=== PATIENT | female | born 1980 ===

== ENCOUNTER → 2018-07-30 | Outpatient (CLI) | payer MEDICAID, OTHER ==
--- NOTE | 2018-08-02 23:54 | HOLTMON ---
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 Normal sinus rhythm with a maximum heart of 136 bpm noted at 1:53:39 PM and a minimum rate of 51 bpm noted at 5:44:21 AM. No activity reported with the maximum heart rate. No pause. Very rare isolated PACs. No supraventricular run. A total of 12 isolated PACs noted. Rare isolated PVCs, a total of 136 premature isolated ventricular ectopies noted. No ventricular run. Patient was asymptomatic during that period of monitoring. Electronically Signed On 08-02-2018 23:53:37 EDT by Jeovanny Escobedo
== END ==
LOC: M EKG 11:37
PROVIDERS: ATTEND Registered Nurse
DX: R55 Syncope and collapse (principal)

== ENCOUNTER → 2019-03-03 | Outpatient (REF) ==
[2019-03-03 13:26] LABS: RUBELLA IgG QUALITATIVE IMMUNE (IMMUNE)
== END ==
LOC: M LAB 11:32
PROVIDERS: ATTEND Nurse Practitioner Adult Health
DX: Z02.1 Encounter for pre-employment examination (principal)